=== PATIENT | female | born 1985 ===

== ENCOUNTER 2017-11-04 16:05 | Outpatient (CLI) | payer BC, MEDICAID ==
[~2017-11-04] VITALS: Ht 180.3 cm; Wt 71.4 kg
[~2017-11-04 16:05] MED LIST: ACET325T14 PO; IBUP-1222 PO; ONDA4TAB10 PO; PREN1TAB60 PO
[2017-11-04 16:38] VITALS: BP 122/74
== END 2017-11-04 17:05 | disposition home or self-care (01) ==
LOC: LDOP 16:05
PROVIDERS: ATTEND Obstetrics & Gynecology
DX: O26.893 Other specified pregnancy related conditions, third trimester (principal); M54.9 Dorsalgia, unspecified; Z3A.37 37 weeks gestation of pregnancy
CPT/HCPCS: 59025; 99201; G0463

== ENCOUNTER 2017-11-06 19:20 | Outpatient (CLI) | payer BC, MEDICAID ==
[~2017-11-06] VITALS: Ht 180.3 cm; Wt 71.0 kg
== END 2017-11-06 21:30 | disposition home or self-care (01) ==
LOC: LDOP 19:20
PROVIDERS: ATTEND Obstetrics & Gynecology
DX: O26.893 Other specified pregnancy related conditions, third trimester (principal); R10.9 Unspecified abdominal pain; Z3A.37 37 weeks gestation of pregnancy
CPT/HCPCS: 59025; 99211; G0463

== ENCOUNTER 2017-11-08 14:07 | Outpatient (CLI) | payer BC ==
[~2017-11-08] VITALS: Ht 180.3 cm; Wt 70.0 kg
[2017-11-08 14:10] VITALS: BP 124/66
== END 2017-11-08 16:07 | disposition home or self-care (01) ==
LOC: LDOP 14:07
PROVIDERS: ATTEND Obstetrics & Gynecology
DX: O26.893 Other specified pregnancy related conditions, third trimester (principal); R10.9 Unspecified abdominal pain; Z3A.00 Weeks of gestation of pregnancy not specified
CPT/HCPCS: 59025; 99211; G0463

== ENCOUNTER 2017-11-09 16:56 | Inpatient (IN) | payer BC ==
[~2017-11-09] VITALS: Ht 180.3 cm; Wt 70.0 kg
[2017-11-09 17:35] VITALS: BP 135/83
[2017-11-09] MEDS ORDERED: OXYTOCIN 30U/ 0.9% NaCL 500ML 500 ML IV PRN (21:01)
[2017-11-09] MEDS: D5%-LACTATED RINGERS 1,000 ML IV SCH (21:01)
[2017-11-09] MEDS ORDERED: OXYTOCIN 30U/ 0.9% NaCL 500ML 500 ML IV ONE (21:01)
[2017-11-09] MEDS ORDERED: MISOPROSTOL 200 MCG TABLET ONE (21:02)
[2017-11-09] MEDS ORDERED: LIDOCAINE 1%, 20ML ONE (21:02)
[2017-11-09] MEDS ORDERED: NEWBORN KIT ONE (21:02)
[2017-11-09] MEDS ORDERED: OXYTOCIN 30U/ 0.9% NaCL 500ML 500 ML ONE (21:03)
[2017-11-09] MEDS: LACTATED RINGERS 1,000 ML IV SCH ×2 (21:10→22:47)
[2017-11-09 21:25] LABS: BASOPHILS # (AUTO) 0.02 x10^3/uL (0-0.1); BASOPHILS % (AUTO) 0 % (0-1); EOSINOPHILS # (AUTO) 0.05 x10^3/uL (0-0.4); EOSINOPHILS % (AUTO) 0 % (1-7); LYMPHOCYTES # (AUTO) 2.27 x10^3/uL (1-3.4); LYMPHOCYTES % (AUTO) 18 % (22-44); MD NO; MEAN CORPUSCULAR HEMOGLOBIN 27.8 pg (27.0-34.8); MEAN CORPUSCULAR HGB CONC 33.9 g/dL (32.4-35.8); MEAN CORPUSCULAR VOLUME 82.1 fL (80-100); MEAN PLATELET VOLUME 7.7 fL (7.4-10.4); MONOCYTES # (AUTO) 1.01 x10^3/uL (0.2-0.8); MONOCYTES % (AUTO) 8 % (2-9); NEUTROPHILS # (AUTO) 9.34 x10^3/uL (1.8-6.8); NEUTROPHILS % (AUTO) 74 % (42-75); PLATELET COUNT 386 x10^3/uL (130-400); RED BLOOD COUNT 3.53 x10^6/uL (3.82-5.3); RED CELL DISTRIBUTION WIDTH 13.9 % (9.6-15.2)
[2017-11-09] MEDS ORDERED: ALUMINUM/MAG/SIMETHICONE 30 ML UDC PO PRN (21:30)
[2017-11-09] MEDS ORDERED: SODIUM CITRATE/CITRIC ACID 30 ML UDC PO PRN (21:30)
[2017-11-09] MEDS ORDERED: ONDANSETRON 2MG/ML, 2ML IVPush PRN (21:30)
[2017-11-09] MEDS ORDERED: CALCIUM CARBONATE 500 MG TAB.CHEW PO PRN (21:30)
[2017-11-09] MEDS ORDERED: FENTANYL PF 100 MCG/2ML IVPush PRN (21:30)
[2017-11-09] MEDS ORDERED: FENTANYL/BUPIV./NS/PF 250 ML EPIDCONT ONE (22:41)
[2017-11-10] MEDS: LACTATED RINGERS 1,000 ML IV SCH ×6 (00:28→20:56)
[2017-11-10] MEDS: FENTANYL/BUPIV./NS/PF 250 ML EPIDCONT SCH ×2 (00:28→21:18)
[2017-11-10] MEDS ORDERED: NALOXONE 0.4 MG/ML, 1ML IVPush PRN (00:30)
[2017-11-10] MEDS ORDERED: DIPHENHYDRAMINE 50 MG/ML, 1ML IVPush PRN (00:30)
[2017-11-10] MEDS ORDERED: LACTATED RINGERS 1,000 ML IVBOLUS PRN (00:30)
[2017-11-10] MEDS ORDERED: EPHEDRINE 50 MG/ML, 1ML IVPush PRN (00:30)
[2017-11-10] MEDS ORDERED: ONDANSETRON 2MG/ML, 2ML IVPush PRN ×2 (00:30→11:30)
[2017-11-10] MEDS ORDERED: SODIUM CITRATE/CITRIC ACID 30 ML UDC ONE (00:58)
[2017-11-10] MEDS ORDERED: METOCLOPRAMIDE 5 MG/ML, 2ML ONE (01:08)
[2017-11-10] MEDS ORDERED: ONDANSETRON 2MG/ML, 2ML ONE (04:20)
[2017-11-10] MEDS: D5%-LACTATED RINGERS 1,000 ML IV SCH ×3 (05:01→21:01)
[2017-11-10] MEDS ORDERED: TERBUTALINE 1 MG/ML, 1ML ONE (09:56)
[2017-11-10] MEDS ORDERED: PROPOFOL 10 MG/ML, 20ML ONE (10:09)
[2017-11-10] MEDS ORDERED: FENTANYL PF 100 MCG/2ML ONE ×2 (10:10→12:01)
[2017-11-10] MEDS ORDERED: MIDAZOLAM 1 MG/ML, 2ML ONE (10:10)
[2017-11-10] MEDS ORDERED: CEFAZOLIN 1,000 MG ONE ×2 (10:27→10:28)
[2017-11-10] MEDS ORDERED: SUCCINYLCHOLINE 20 MG/ML, 10ML ONE ×2 (10:27)
[2017-11-10] MEDS ORDERED: ROCURONIUM 10MG/ML,5ML ONE (10:27)
[2017-11-10] MEDS ORDERED: SODIUM CHLORIDE 0.9% PF 10ML ONE (10:27)
[2017-11-10] MEDS ORDERED: OXYTOCIN 10 UNITS/ML, 1ML ONE ×4 (10:33)
[2017-11-10] MEDS ORDERED: NEWBORN KIT ONE (10:41)
[2017-11-10] MEDS ORDERED: GLYCERIN ADULT SUPP PR PRN (11:00)
[2017-11-10] MEDS ORDERED: MISOPROSTOL 200 MCG TABLET PR PRN (11:00)
[2017-11-10] MEDS ORDERED: BISACODYL 10 MG SUPP PR PRN (11:00)
[2017-11-10] MEDS ORDERED: ACETAMINOPHEN 325 MG TABLET PO PRN (11:00)
[2017-11-10] MEDS ORDERED: KETOROLAC 30 MG/1 ML IV SCH (11:00)
[2017-11-10] MEDS ORDERED: OXYcodone IR 5MG TABLET PO PRN (11:00)
[2017-11-10] MEDS ORDERED: CARBOPROST TROMETHAMINE 250 MCG/ML, 1ML IM PRN (11:00)
[2017-11-10] MEDS ORDERED: OXYcodone/APAP 5/325MG TABLET PO PRN (11:00)
[2017-11-10] MEDS ORDERED: METHYLERGONOVINE 0.2 MG/ML IM PRN (11:00)
[2017-11-10] MEDS ORDERED: METOCLOPRAMIDE 5 MG/ML, 2ML IV PRN (11:00)
[2017-11-10] MEDS ORDERED: ONDANSETRON 2MG/ML, 2ML IV PRN (11:00)
[2017-11-10] MEDS ORDERED: KETOROLAC 30 MG/1 ML ONE ×2 (11:09→17:07)
[2017-11-10] MEDS ORDERED: HYDROmorphone 1 MG/ML, 1ML IV PRN (11:30)
[2017-11-10] MEDS ORDERED: OXYcodone 5 MG/5 ML ORAL.SOL UDC PO PRN (11:30)
[2017-11-10] MEDS ORDERED: FENTANYL PF 100 MCG/2ML IV PRN (11:30)
[2017-11-10] MEDS ORDERED: PROMETHAZINE 12.5 MG SUPP PR PRN (11:30)
[2017-11-10] MEDS ORDERED: MEPERIDINE/PF 25MG/0.5ML IVPush PRN (11:30)
[2017-11-10] MEDS ORDERED: PROMETHAZINE 25 MG/ML, 1ML IV PRN (11:30)
[2017-11-10] MEDS ORDERED: OXYcodone 5 MG/5 ML ORAL.SOL UDC ONE (12:01)
[2017-11-10] MEDS: OXYTOCIN 30U/ 0.9% NaCL 500ML 500 ML IV SCH ×2 (12:18→20:56)
[2017-11-10 13:30] VITALS: BP 111/75
[2017-11-10] MEDS ORDERED: KETOROLAC 10MG TABLET PO SCH (14:00)
[2017-11-10 17:22] VITALS: BP 123/83
[2017-11-10 18:27] LABS: BASOPHILS # (AUTO) 0.05 x10^3/uL (0-0.1); BASOPHILS % (AUTO) 0 % (0-1); EOSINOPHILS # (AUTO) 0.03 x10^3/uL (0-0.4); EOSINOPHILS % (AUTO) 0 % (1-7); LYMPHOCYTES # (AUTO) 1.52 x10^3/uL (1-3.4); LYMPHOCYTES % (AUTO) 11 % (22-44); MD NO; MEAN CORPUSCULAR HEMOGLOBIN 27.9 pg (27.0-34.8); MEAN CORPUSCULAR HGB CONC 33.5 g/dL (32.4-35.8); MEAN CORPUSCULAR VOLUME 83.4 fL (80-100); MEAN PLATELET VOLUME 7.4 fL (7.4-10.4); MONOCYTES # (AUTO) 0.92 x10^3/uL (0.2-0.8); MONOCYTES % (AUTO) 6 % (2-9); NEUTROPHILS # (AUTO) 11.97 x10^3/uL (1.8-6.8); NEUTROPHILS % (AUTO) 83 % (42-75); PLATELET COUNT 314 x10^3/uL (130-400); RED CELL DISTRIBUTION WIDTH 13.7 % (9.6-15.2)
[2017-11-10] MEDS: KETOROLAC 10MG TABLET PO SCH ×2 (21:00→23:47)
[2017-11-10 22:00] VITALS: BP 122/80
[2017-11-10] MEDS ORDERED: BUPIVACAINE 0.25% ONE (22:50)
[2017-11-10] MEDS ORDERED: LIDOCAINE/PF 1.5%-EPI 1:200K, 30ML ONE (22:50)
[2017-11-11 00:25] VITALS: BP 127/77
[2017-11-11 04:26] VITALS: BP 130/82
[2017-11-11] MEDS: KETOROLAC 10MG TABLET PO SCH ×4 (05:20→23:00)
[2017-11-11 08:05] VITALS: BP 115/78
[2017-11-11] MEDS: DOCUSATE 100 MG CAPSULE PO PRN (09:11)
[2017-11-11] MEDS: PRENATAL VIT/IRON/FA 1 EACH TABLET PO SCH (09:11)
[2017-11-11] MEDS ORDERED: KETOROLAC 30 MG/1 ML IV SCH (11:00)
[2017-11-11 16:15] VITALS: BP 97/58
[2017-11-11 19:35] VITALS: BP 127/71
[2017-11-11 20:00] VITALS: BP 127/81
[2017-11-12] MEDS: KETOROLAC 10MG TABLET PO SCH ×4 (05:16→23:14)
[2017-11-12] MEDS: DOCUSATE 100 MG CAPSULE PO PRN ×2 (07:19→21:47)
[2017-11-12] MEDS: PRENATAL VIT/IRON/FA 1 EACH TABLET PO SCH (07:19)
[2017-11-12 07:25] VITALS: BP 121/83
[2017-11-12] MEDS ORDERED: IBUPROFEN 800 MG TABLET PO PRN (11:00)
[2017-11-12] MEDS ORDERED: IBUPROFEN 600 MG TABLET PO PRN (11:00)
[2017-11-12 20:20] VITALS: BP 126/80
[2017-11-13] MEDS ORDERED: OXYC-302 PO (00:09)
[2017-11-13] MEDS ORDERED: IBUP-1222 PO (00:09)
[2017-11-13] MEDS: KETOROLAC 10MG TABLET PO SCH ×3 (05:14→17:47)
[2017-11-13] MEDS ORDERED: TRAM50TA2 PO (07:06)
[2017-11-13] MEDS ORDERED: KETO10TA PO (07:06)
[2017-11-13 07:55] VITALS: BP 128/73
[2017-11-13] MEDS: DOCUSATE 100 MG CAPSULE PO PRN (08:51)
[2017-11-13] MEDS: PRENATAL VIT/IRON/FA 1 EACH TABLET PO SCH (08:51)
== END 2017-11-13 19:00 | disposition home or self-care (01) | DRG 766 ==
LOC: LDOP 16:56 → LDIP 20:41 → 2NW 11-10 13:20
PROVIDERS: ADMIT Obstetrics & Gynecology; ATTEND Obstetrics & Gynecology
PROC: 10D00Z1 Extraction of Products of Conception, Low, Open Approach (ICD-10-PCS; principal; 2017-11-10)
PROC: 4A1H74Z Monitoring of Products of Conception, Cardiac Electrical Activity, Via Natural or Artificial Opening (ICD-10-PCS; 2017-11-10)
DX: O76 Abnormality in fetal heart rate and rhythm complicating labor and delivery (principal); F17.220 Nicotine dependence, chewing tobacco, uncomplicated; Z37.0 Single live birth; O99.334 Smoking (tobacco) complicating childbirth; O44.40 Low lying placenta NOS or without hemorrhage, unspecified trimester; N93.9 Abnormal uterine and vaginal bleeding, unspecified
CPT/HCPCS: 36415; 74018; 76815; 82803; 85025; 86850; 86900; 88305; J0690; J1885; J2250; J2405; J2704; J3010; J3490; J0330; J2590; J7120; J7121